=== PATIENT | female | born 2000 | race African-American/Black ===

== ENCOUNTER 2023-02-17 12:14 | Emergency (ER) | payer SELFPAY ==
[~2023-02-17] VITALS: Ht 160 cm; Wt 90.7 kg
[2023-02-17 12:56] LABS: CLARITY,URINE SL CLOUDY (CLEAR); COLOR,URINE YELLOW (YELLOW); KETONES,URINE TRACE (NEGATIVE); LEUKOCYTE ESTERASE ,URINE MODERATE (NEGATIVE); NITRITE,URINE NEGATIVE (NEGATIVE); PROTEIN,URINE DIPSTICK TRACE (NEGATIVE); URINE UROBILINOGEN 0.2 mg/dL (0.2 - 1)
[2023-02-17 13:05] LABS: BACTERIA,URINE MODERATE /HPF; EPITHELIAL CELLS,URINE FEW /LPF; RBC,URINE 0-5 /HPF (0-5); WBC,URINE (MAN) >50 /HPF (0-5)
[2023-02-17] MEDS ORDERED: CEFUROXIME250 MG PO (13:18)
== END 2023-02-17 13:39 | disposition home or self-care (01) ==
LOC: ER 12:28
DX: R10.30 Lower abdominal pain, unspecified (principal); N12 Tubulo-interstitial nephritis, not specified as acute or chronic; F41.9 Anxiety disorder, unspecified
CPT/HCPCS: 81001; 81025; 87086; 87186; 99282